=== PATIENT | male | born 1995 | race Caucasian/White ===

== ENCOUNTER 2019-02-04 05:33 | Inpatient (IN) | payer BC ==
[2019-02-04] MEDS ORDERED: Thrombin 5000 UNITS/5 ML VIAL ONE (06:18)
[2019-02-04] MEDS ORDERED: Lidocaine 0.5%/Epinephrine 1:200,000 50 ml Vial ONE (06:18)
[2019-02-04] MEDS ORDERED: Fentanyl 100 MCG/2 ML VIAL ONE ×3 (06:27→11:22)
[2019-02-04] MEDS ORDERED: Midazolam HCl 2 mg/2 ml Vial ONE (06:27)
[2019-02-04] MEDS ORDERED: Bacitracin Zinc Ointment 30 gm TUBE ONE (06:36)
[2019-02-04] MEDS ORDERED: Clindamycin/D5W 900 mg/50 ml Premix Bag ONE (06:40)
[2019-02-04] MEDS ORDERED: Levofloxacin 500 mg/D5W 100 ml Premix Bag ONE (06:40)
[2019-02-04] MEDS ORDERED: Docusate 100 MG CAP PO PRN (10:29)
[2019-02-04] MEDS ORDERED: diphenhydrAMINE 50 MG/ML VIAL IVP PRN (10:29)
[2019-02-04] MEDS ORDERED: Morphine 2 MG/ML SYRINGE SLOW IVP PRN (10:29)
[2019-02-04] MEDS ORDERED: hydrALAZINE 20 MG/ML VIAL SLOW IVP PRN (10:29)
[2019-02-04] MEDS ORDERED: Labetalol HCl 100 MG/20 ML VIAL SLOW IVP PRN (10:29)
[2019-02-04] MEDS ORDERED: Ondansetron PF 4 MG/2 ML Vial IVP PRN (10:29)
[2019-02-04] MEDS ORDERED: HYDROmorphone 2 MG/ML VIAL SLOW IVP PRN (10:49)
[2019-02-04] MEDS ORDERED: Ondansetron HCl/PF 4 MG/2 ML Vial IVP PRN (10:49)
[2019-02-04] MEDS ORDERED: Promethazine HCl 25 MG/ML VIAL SLOW IVP PRN (10:49)
[2019-02-04] MEDS ORDERED: Promethazine HCl 25 MG/ML VIAL IM PRN (10:49)
[2019-02-04] MEDS ORDERED: ePHEDrine/0.9% NaCl/PF SYRINGE 50 mg/10 ml ONE (14:03)
[2019-02-04] MEDS ORDERED: Esmolol 100 MG/10 ML VIAL ONE (14:03)
[2019-02-04] MEDS ORDERED: Labetalol HCl 100 MG/20 ML VIAL ONE (14:03)
[2019-02-04] MEDS ORDERED: Dexamethasone 20 MG/5 ML VIAL ONE (14:03)
[2019-02-04] MEDS ORDERED: Vecuronium 10 MG VIAL ONE (14:03)
[2019-02-04] MEDS ORDERED: Glycopyrrolate 0.2 MG/ML 5 ML SYRINGE ONE (14:03)
[2019-02-04] MEDS ORDERED: Ondansetron PF 4 MG/2 ML Vial ONE (14:03)
[2019-02-04] MEDS ORDERED: PHENYLEPHRINE-NS 100 MCG/ML 10 ML SYRINGE ONE (14:03)
[2019-02-04] MEDS ORDERED: Rocuronium Bromide 10 MG/ML (10ML VIAL) ONE (14:03)
[2019-02-04] MEDS ORDERED: Lidocaine 1% PF 5 ML VIAL ONE (14:03)
[2019-02-04] MEDS ORDERED: PROPOFOL 200 MG/20 ML VIAL ONE (14:03)
[2019-02-04] MEDS ORDERED: Fosphenytoin Sodium 100 mg/2 ml Vial IVPB SCH (15:00)
[2019-02-04 15:18] VITALS: BMI 22.1
[2019-02-04] MEDS: Clindamycin/D5W 900 MG in Premix Bag 1 BAG IVPB SCH ×3 (16:32→23:03)
[2019-02-04] MEDS: Sodium Chloride 0.9% 1,000 ML IV SCH (16:33)
[2019-02-04] MEDS: Dexamethasone 4 mg/ml Vial SLOW IVP SCH ×3 (16:33→23:03)
--- NOTE | 2019-02-04 17:11 | OP ---
DATE OF PROCEDURE: 02/04/2019 CONTINUOUS IMPROVEMENT ANALYST: Ramsey Fregoso PA-C INDICATION: Obtain diagnosis and prevent neurologic decline. DIAGNOSIS: Left frontoparietal lesion consistent with tumor. PROCEDURE PERFORMED: Left frontoparietal craniotomy with resection of tumor. ANESTHESIA: General. DESCRIPTION OF PROCEDURE: The patient was brought into the operating room and placed under general anesthesia. He was placed on table in a supine position. A three-point Tian jaskaran was applied to his head and fixed to the table. The stereotactic guidance system was attached and was registered for the purposes of preoperative and intraoperative surgical planning. A reverse ? incision was planned over the left frontoparietal region with minimal head shave. After prepping and draping and after an appropriate operative pause, the incision was created. The galea and temporalis muscle were reflected anteriorly and slightly inferior to expose the underlying bone. A stereotactic imaging system was again used to find out location of the tumor as well as the craniotomy site. A total of 4 harsha holes were placed. Those harsha holes were connected with a router drill bit. The bone flap was removed and placed in a sterile fashion. A curvilinear incision was then created within the dura and the dura was reflected inferiorly. There was immediately apparent abnormal hue to the underlying brain in this region as well as a grossly visible tumor at the cortical margin. Prior to incision, the patient had been given fosphenytoin and mannitol. A corticotomy was performed, where there was immediate egress of subacute and chronic blood product consistent with lesional hemorrhage. The hemorrhagic components were completely removed. Stereotactic imaging system was then used to remove the intraparenchymal component of the tumor, which appeared grossly abnormal without a clear border. It appeared necrotic in nature. The imaging system was used throughout in an effort to remove abnormal tissue. Given the proximity of this tumor to the patient's motor strip, no additional margins were removed outside of what appeared normal with respect to the imaging system. The initial pathologic analysis from a frozen section intraoperatively revealed necrotic and atypical tissue concerning for higher grade primary neoplasm. After obtaining hemostasis, multiple tack-up sutures were placed along the perimeter of the bone flap and the dura was secured. The dura was then closed in primary fashion around the perimeter. The bone was carefully returned and affixed at three-point fixation. The galea was closed in anatomic layers. During skin closure, Anesthesiology made us aware of a drop in blood pressure and poor oxygenation. We augmented this with pressors, and within minutes, the oxygenation as well as blood pressure normalized. It was unclear whether this represented venous air embolism or some other anomaly, but it nonetheless normalized and I did make the family aware during my postoperative discussion. A head wrap was securely placed and the procedure came to an end without known complication. Job ID: [id number]
[2019-02-04] MEDS: Fosphenytoin Sodium 100 MG in Sodium Chloride 0.9% 50 ML IVPB SCH ×2 (17:18→20:28)
[2019-02-04] MEDS: Acetaminophen 325 MG TAB PO PRN (20:27)
[2019-02-04] MEDS: Famotidine/PF 20 mg/2ml Vial SLOW IVP SCH (20:28)
[2019-02-05] MEDS: Sodium Chloride 0.9% 1,000 ML IV SCH ×2 (05:37→18:19)
[2019-02-05] MEDS: Acetaminophen 325 MG TAB PO PRN ×4 (05:48→19:59)
[2019-02-05] MEDS: Dexamethasone 4 mg/ml Vial SLOW IVP SCH ×3 (05:49→18:43)
[2019-02-05 05:57] LABS: Anion Gap 11 mmol/L (10-20); BUN (Urea Nitrogen) 16 mg/dL (8.9-20.6); Calc. Creatinine Clearance 127 mL/min (70-130); Calcium 8.6 mg/dL (7.8-10.44); Carbon Dioxide 31 mmol/L (22-29); Chloride 100 mmol/L (98-107); Estimated GFR-MDRD Greater than 90; Glucose 117 mg/dL (70-105); Potassium 4.7 mmol/L (3.5-5.1); Sodium 137 mmol/L (136-145)
[2019-02-05 06:09] LABS: Band 1 % (5-11); Hemoglobin 13.7 g/dL (14.0-18.0); Lymphocytes 2 % (21-51); MDiff Complete? YES; Mean Corpuscular HGB CONC 32.7 g/dL (32.0-36.0); Mean Corpuscular Hemoglobin 32.3 pg (27.0-31.0); Mean Corpuscular Volume 98.8 fL (78.0-98.0); Mean Platelet Volume 7.6 fL (7.4-10.4); Monocytes 7 % (0-10); Neutrophil 90 % (42-75); Platelet Count 199 thou/uL (130-400); Platelet Morphology Comment Appears Adequate; RBC Distribution Width 12.7 % (11.5-14.5); RBC Morphology Normal; Red Blood Cell (RBC) Count 4.25 mill/uL (4.70-6.10); White Blood Cell (WBC) Count 22.2 thou/uL (4.8-10.8)
[2019-02-05] MEDS: Fosphenytoin Sodium 100 MG in Sodium Chloride 0.9% 50 ML IVPB SCH (09:50)
[2019-02-05] MEDS: Famotidine/PF 20 mg/2ml Vial SLOW IVP SCH ×2 (09:51→20:00)
--- NOTE | 2019-02-05 10:47 | CON ---
DATE OF CONSULTATION: HISTORY OF PRESENT ILLNESS: Mike Ayon is a 23-year-old [place], who presented to the hospital for left frontoparietal craniotomy and resection of tumor. He apparently is pretty healthy, who did have some slurred speech and headache, and apparently, was seen by Neurosurgery where he was found to have a brain tumor. The patient is very healthy. PAST MEDICAL HISTORY: No history of diabetes or hypertension. PAST SURGICAL HISTORY: Previous surgeries; apparently intussusception. No chronic medication. ALLERGIES: APPARENTLY PENICILLIN. MEDICATIONS: He is presently on dexamethasone and Dilantin. Prior to admission, he was started on Protonix and Zyrtec. SOCIAL AND FAMILY HISTORY: Unremarkable. REVIEW OF SYSTEMS: Unremarkable. PHYSICAL EXAMINATION: GENERAL: He is awake, alert, and responsive. VITAL SIGNS: Temperature 98, saturations 98% on room air, blood pressure 106/79, pulse 88, and respirations 18. CHEST: No wheezing or crackles. CARDIAC: Normal S1, S2. No gallops. ABDOMEN: No masses. LABORATORY DATA: White count 20,000. Lytes are normal. Status post craniotomy. Stable. We will follow while in the ICU. Await path. Supportive care. Job ID: [id number]
[2019-02-05 13:39] VITALS: BP 107/67
--- NOTE | 2019-02-05 15:20 | PRG ---
DATE OF SERVICE: 02/05/2019 Mr. Ayon is postop day #1, following left frontal tumor resection and craniotomy. He is actually doing extraordinarily well today with only what he rates severe 3/10 pain over the incision. Neurologically, he is at his baseline, where he was preoperatively. If not, may be somewhat improved and is very optimistic. Pathology was discussed yesterday with his parents. I am uncertain if that was discussed with the patient today or not. The plan will be to move him out of the ICU. Discontinue his Giles and then move him to the surgical floor with potential discharge as early as today. We are still pending the final pathology results. Consultations have been ordered to Oncology. Job ID: [id number]
[2019-02-05] MEDS ORDERED: Prevnar 13-Val Conj/PF 0.5 ML SYRINGE IM ONE (15:30)
[2019-02-05] MEDS ORDERED: FLU VACC QS2019-20(6MOS UP)/PF 60 MCG/0.5 ML SYRINGE IM ONE (15:45)
--- NOTE | 2019-02-05 17:41 | PRG ---
DATE OF SERVICE: 02/05/2019 When I saw Mr. Ayon earlier today, his pathology report was not available. It has now become available. 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 Molecular analysis on the tumor is still pending. I went and talked to the patient and his parents, who are at his bedside regarding his diagnosis. We discussed the pathology, the prognosis, and the implications for treatment. He will need postoperative chemotherapy and radiation and most likely will need maintenance chemotherapy after that. The logistics of radiation as well as the benefits and risk of treatment were discussed with them. The simulation and daily treatment procedure were discussed. Side effects would include, but not be limited to skin reaction, fatigue, lower blood counts, hair loss which may be permanent, headache, nausea, vomiting, and small risk of damage to his normal brain. Time was taken to all of their questions regarding his diagnosis and possible treatment options and prognosis. We did discuss that the only other option that he could consider for treatment would be to go to an academic center such as [facility] or [facility] and to see if there is a clinical trial that is available given the fact that these tumors are likely to recur despite best standard treatment. They are going to consider all other options. They still are desirous of proceeding with treatment here. I am going to make arrangements to see them again in 2 weeks and will make arrangements for them also to be seen by Medical Oncology if they have not already done so. An additional 30 minutes were spent at the bedside discussing all of this. Job ID: [id number]
--- NOTE | 2019-02-05 18:18 | CON ---
DATE OF CONSULTATION: 02/05/2019 REASON FOR CONSULTATION: Mr. Ayon is a 23-year-old gentleman, who has likely been diagnosed with a brain tumor. I was asked to see him to make treatment recommendations. HISTORY OF PRESENT ILLNESS: Mr. Ayon states that about 4 weeks ago, he first noted some slurred speech. This gradually progressed. About 2 weeks ago, he saw some right-sided facial weakness and drooping and he subsequently went to Urgent Care for this. He was then sent to the emergency room and ultimately was admitted to [facility], where he had an MRI of the brain, which apparently showed a mass in the left frontal parietal region of the brain. Apparently, there was a little enhancement, but there was a cystic portion to the mass. Subsequently on 02/04/2019, he underwent a left frontoparietal craniotomy with resection of the tumor by Dr. Quezada. The cystic portion of the tumor was completely removed and a large portion of the tumor was removed, although the borders were difficult and it was felt that a gross total resection was not able to be accomplished. Care was taken to avoid injury to the motor strip. Frozen section was consistent with a high-grade tumor, although path is still currently pending. I was asked to see the patient to discuss possible treatment options. He does feel that his speech and facial droop have improved since surgery. He denies any headaches at this time or focal weakness or numbness. He voices no other complaints. PAST MEDICAL HISTORY: 1. Intussusception at age 4, status post surgical repair. 2. He denies other medical or surgical problems. MEDICATIONS: 1. Dexamethasone. 2. Pepcid. ALLERGIES: PENICILLIN, WHICH CAUSES A RASH AND VOMITING. SOCIAL HISTORY: He lives here in [facility]. He is a student at [employer], and he is in his jack year. 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 He has no cigarette or alcohol use at the present. His mother and father are at his bedside. FAMILY HISTORY: His mother and father still living and doing well. There is no family history of malignancy. REVIEW OF SYSTEMS: Twelve-system review of systems is otherwise negative. PHYSICAL EXAMINATION: VITAL SIGNS: Height 5 feet and 10 inches. Weight 154 pounds. Blood pressure is 120/76, pulse is 74, respirations are 15, temperature 98.6, O2 saturations 99%. CONSTITUTIONAL: He is alert and oriented and in no apparent distress. He is well developed and well nourished. Karnofsky performance status is an 80%, but expected to improve. EYES: Pupils equal, round, and reactive to light. Extraocular movements are intact. ENT: Oral cavity and oropharynx normal without lesion or erythema. Palate elevates symmetrically. Gingiva is intact. NECK: Supple without preauricular, submandibular, cervical, supraclavicular adenopathy. No thyromegaly. Larynx is midline. LUNGS: Breathing nonlabored. Clear to auscultation and percussion. CARDIOVASCULAR/HEART: Regular rate and rhythm without murmur. No lower extremity edema. BACK: No tenderness on fist percussion of the spine. LYMPHATIC: No axillary or inguinal adenopathy. ABDOMEN: Bowel sounds are present. Soft, nontender, nondistended without mass or hepatosplenomegaly. Liver percusses to normal size. SKIN: Without rash or purpura. NEUROLOGIC: Cranial nerves 2 through 12 grossly intact. Motor strength is 5/5 in both upper and lower extremities in all muscle groups tested. Reflexes are normal and symmetrical. Gait was not tested. LABORATORY DATA: CBC revealed a white blood cell count of 22,000 with a hemoglobin of 13.7, hematocrit of 42.0, and platelet count 199,000. Chemistry group showed normal electrolytes. Pathology from the surgery is currently pending. RADIOLOGIC DATA: MRI was performed at [facility], and is currently not available for review. ASSESSMENT: Mr. Ayon is a 23-year-old gentleman, who is status post craniotomy for a left frontoparietal brain tumor. Pathology from this is currently pending. PLAN: I had a long discussion today with Mr. Ayon as well as his mother and father regarding his situation and possible diagnosis. At this time, his pathology is not available for review. I told them that it may take 1 to 2 weeks to get his final pathology back as I anticipate that they will likely send this for expert Neuropathological consultation as well as perform immunostains in mutational analysis to exactly classify this brain tumor. I explained the spectrum of brain tumors that exist to Nany and also explained that treatment depends on what type of brain tumor this could be. Tumor treatment may consist of radiation therapy followed by chemotherapy, chemotherapy followed by radiation, or concurrent chemotherapy and radiation depending on the exact brain tumor and the exact grade of the brain tumor. The logistics of radiation as well as the benefits and risk of treatment were briefly discussed with them. The simulation and daily treatment procedure were briefly discussed. Again, not many details can be given of this because we do not have pathological diagnosis at the present time. I recommended that we see him again as an outpatient in about 2 weeks. I explained that typically radiation begins anywhere from 4 to 6 weeks after surgery depending on healing. They are agreeable with that and we will make arrangements for him to be seen in about 2 weeks for evaluation and final treatment recommendations. He does indicate his desire to proceed with treatment here in town if possible. His family is from just outside of [place]. Nevertheless, he hopes to proceed with treatment here. Thank you for this interesting consultation. Job ID: [id number]
[2019-02-06 00:43] VITALS: TEMP 98.7
[2019-02-06] MEDS: Dexamethasone 4 mg/ml Vial SLOW IVP SCH (01:03)
[2019-02-06] MEDS ORDERED: Dexamethasone 4 mg/ml Vial ONE (05:43)
--- NOTE | 2019-02-06 19:16 | PRG ---
DATE OF SERVICE: 02/06/2019 Mr. Ayon is a 23-year-old gentleman, now 2 days status post a left frontal parietal resection of a glioblastoma multiform. The intraoperative and postoperative course have been uneventful. He is in the ICU today only because a floor bed was not available. He is back to neurologic baseline, which is normal with the exception of mild facial droop and mild degree of dysarthria, which he had preoperatively. I inspected his incision which is well healed. He has been mobilizing independently and tolerating an oral diet and reports minimal pain. The plan is to discharge him home today on Dilantin and a Decadron taper. We have made plans to follow up with him in the clinic in 2 weeks for staple removal. We have also made plans for him to follow up with Oncology in 2 weeks to further explore his options with respect to adjuvant treatment. I had a lengthy discussion with the patient's parents today in his room. Discussed all the above issues as well as perioperative care of his incision and the options for adjuvant treatment moving forward and our willingness to talk to him at any time should they have any concerns which developed between now and his 2 week appointment. Job ID: [id number] [email or web address]
== END 2019-02-06 11:50 | disposition home or self-care (01) | DRG 25 ==
LOC: SURG A 05:33 → CCU 15:00
PROVIDERS: ADMIT Neurological Surgery; ATTEND Neurological Surgery
PROC: 00B00ZZ Excision of Brain, Open Approach (ICD-10-PCS; principal; 2019-02-04)
PROC: 00C00ZZ Extirpation of Matter from Brain, Open Approach (ICD-10-PCS; 2019-02-04)
DX: C71.1 Malignant neoplasm of frontal lobe (principal); I61.8 Other nontraumatic intracerebral hemorrhage; I96 Gangrene, not elsewhere classified; Z88.8 Allergy status to other drugs, medicaments and biological substances; Z88.0 Allergy status to penicillin; Z79.899 Other long term (current) drug therapy; Z98.890 Other specified postprocedural states; R29.810 Facial weakness
CPT/HCPCS: 36415; 80048; 85025; 88307; 88331; 88334; 88342; 88360; 90471; 90686; C1713; C1769; G0008; J1100; J1165; J1956; J2001; J2250; J2270; J2405; J2704; J3010; J3490; Q2009; S0028

== ENCOUNTER 2019-02-25 15:48 | Outpatient (CLI) | payer BC ==
--- NOTE | 2019-02-26 09:20 | MRI ---
Exam: Brain MRI with and without contrast HISTORY: Glioblastoma of the left frontal lobe. Status post resection. COMPARISON: None FINDINGS: Gradient echo sequence: Hemosiderin deposition at the surgical cavity. Additionally there is hemoside rin deposition in the overlying extra-axial space. Calvarium: Appropriate T1 marrow signal intensity. Post surgical changes in the left temporal calvari um is noted. Midline brain parenchyma: Unremarkable Cerebrum:There is a large resection cavity with heterogeneous T1 hyperintense foci that have a somewh at linear appearance. There are extensive T2 hyperintense and FLAIR hyperintense foci suggesting cystic changes involving the resection cavity. There does appear to be a peripherally enhancing compo nent throughout the entire surgical cavity with multiple areas of lobulation. There is a more solid component along the inferior anterior and inferior lateral aspect of the surgical cavity. Residual tu mor in this region is suspected. Additional areas of residual tumor cannot be excluded. Overall, the mass measures 4.1 cm mediolateral by 4.0 cm anterior-posterior by 4.1 cm craniocaudal. On the axi al FLAIR sequence there is evidence of vasogenic edema involving the left temporal lobe with associated sulcal effacement. There is mass effect upon the occipital horn of the left lateral ventri augustine. There is 5 mm of [id number] subfalcine herniation. Ventricles: No evidence of hydrocephalus. Sinuses and mastoid air cells: Small mucous retention cyst in the right maxillary sinus. Diffusion: Central arterial flow is maintained. Restricted diffusion at the operative site is noted. No evidence of restricted diffusion to suggest an acute infarct.. Postcontrast images:Enhancement at the operative site as described above. IMPRESSION: Operative site involving the left temporal lobe. There is evidence of heterogeneous enhancement at th e operative site which may in part represent scar tissue. However, the anterior inferior and inferior lateral aspect have a somewhat more solid appearance on the T2-weighted and FLAIR images. Th ere is also heterogeneous enhancement suggesting residual tumor. Transcribed Date/Time: 02/26/2019 9:55 AM
== END 2019-02-25 15:49 | disposition home or self-care (01) ==
LOC: SCSMRI 15:48
PROVIDERS: ATTEND Radiology Radiation Oncology
DX: C71.1 Malignant neoplasm of frontal lobe (principal)
CPT/HCPCS: 70553

== ENCOUNTER 2019-04-19 13:31 | Emergency (ER) | payer BC ==
--- NOTE | 2019-04-19 13:48 | CT ---
Head CT without contrast 04/19/2019: COMPARISON: [facility]B 02/25/2019 HISTORY: Right arm and leg weakness, right-sided facial droop TECHNIQUE: Axial CT imaging at 5 mm intervals from vertex through skull base without contrast FINDINGS: Imaged paranasal sinuses and mastoid air cells are well-aerated. There is evidence of left craniotomy. There is a complex solid and cystic intra-axial mass lesion deep to the left craniotomy site which measures at least 4.3 x 5.3 x 4.0 cm. Mild adjacent vasogenic edema along the posterior ma rgin. When compared to prior brain MRI the size of the intra-axial mass does not appear significantly changed. The degree of vasogenic edema along its posterior margin is stable to slightly improved. No intracranial hemorrhage is seen. The degree of associated mass effect present on the 02/25/2019 examination has slightly improved. No significant midline shift at this point. IMPRESSION: Intra-axial mass in the left frontal region, consistent with the provided history of part ially resected glioblastoma. No associated hemorrhage. Dr. Velasquez made aware at 1:45 PM 04/19/2019.
[2019-04-19 14:05] LABS: #Eosinphils 0.1 thou/uL (0.0-0.7); #Lymphocytes 0.5 thou/uL (1.20-3.40); #Monocytes 0.6 thou/uL (0.11-0.59); #Neutrophils 7.7 thou/uL (1.40-6.50); %Basophils 0.2 % (0.0-1.0); %Eosinophils 1.6 % (0.0-10.0); %Monocytes 6.4 % (0.0-10.0); %Neutrophils 85.9 % (42.0-75.0); Hemoglobin 16.5 g/dL (14.0-18.0); Mean Corpuscular HGB CONC 34.6 g/dL (32.0-36.0); Mean Corpuscular Hemoglobin 33.9 pg (27.0-31.0); Mean Corpuscular Volume 97.9 fL (78.0-98.0); Mean Platelet Volume 7.1 fL (7.4-10.4); Platelet Count 214 thou/uL (130-400); RBC Distribution Width 13.4 % (11.5-14.5); Red Blood Cell (RBC) Count 4.87 mill/uL (4.70-6.10)
[2019-04-19 14:30] LABS: ALT (SGPT) 44 U/L (8-55); AST (SGOT) 16 U/L (5-34); Albumin 4.3 g/dL (3.5-5.0); Alkaline Phosphatase 54 U/L (40-110); Anion Gap 12 mmol/L (10-20); BUN (Urea Nitrogen) 13 mg/dL (8.9-20.6); Bilirubin, Total 0.4 mg/dL (0.2-1.2); Calc. Creatinine Clearance 0 mL/min (70-130); Carbon Dioxide 30 mmol/L (22-29); Chloride 104 mmol/L (98-107); Estimated GFR-MDRD 90; Globulin 2.3 g/dL (2.4-3.5); Glucose 90 mg/dL (70-105); Potassium 4.2 mmol/L (3.5-5.1); Protein, Total 6.6 g/dL (6.0-8.3); Sodium 142 mmol/L (136-145)
[2019-04-19 14:52] LABS: Bilirubin Negative (Negative); Blood, Urine Negative (Negative); Clarity Clear (Clear); Glucose, Urine (Dipstick) Normal (Negative); Leukocyte Negative Leu/uL (Negative); Nitrite Negative (Negative); Protein, Urine (Dipstick) Negative (Neg-Trace); Urobilinogen Normal mg/dL (Less than 2)
[2019-04-19] MEDS ORDERED: Dexamethasone 4 mg/ml Vial ONE (18:04)
--- NOTE | 2019-04-19 23:04 | CON ---
DATE OF CONSULTATION: 04/19/2019 CHIEF COMPLAINT: Facial spasm, numbness and tingling in the fingers of right hand. HISTORY OF PRESENT ILLNESS: Mr. Ayon is a pleasant 23-year-old gentleman who presents to the emergency department today for evaluation of right-sided facial spasms and numbness/tingling in the fingers of his right hand. He states that he was sitting in class today around 12:30 pm and he began to have right-sided facial spasms as well as numbness and tingling in the fingers of his right hand. He denies any left-sided symptoms. He denies any altered mental status. He reports that he had a similar episode shortly after his left frontal craniotomy and tumor resection on 02/04/[address] Quezada. Tumor pathology returned grade 4 glioblastoma. He subsequently has been undergoing radiation and chemotherapy. He states that his final radiation treatment was yesterday. He is still undergoing chemotherapy. He was previously on phenytoin, but this medication was discontinued approximately 2 weeks ago. He was on a maintenance dose of 300 mg once daily; however, this was decreased to 100 mg daily prior to the medication being discontinued. He remains on Decadron 4 mg once daily, which was recently decreased from 4 mg b.i.d. Overall, he states that he has been doing well recently. He states that his paresthesias in his right hand have resolved since being admitted to the emergency department. He is no longer having the spasms in the right side of his face either. He denies any complaints of pain or headaches. No associated weakness in extremities. No problems with ambulation. PHYSICAL EXAMINATION: The patient is awake, alert, and appropriate. Pupils are equal, round, reactive to light. Extraocular movements are intact. Cranial nerves 2-12 are grossly intact. No tongue fasciculations. 5/5 strength throughout his upper and lower extremities bilaterally. He has a good range of motion and movement in all extremities. IMPRESSION AND DIAGNOSES: 1. Suspected partial seizure 2. Status post left frontal craniotomy and tumor resection on 02/04/2019 with pathology findings of grade 4 glioblastoma PLAN: At this time, I have reviewed imaging and discussed case with Dr. Dominique. The patient's CT of the brain completed in the emergency department today revealed tumor resection changes in the left frontal lobe with surrounding vasogenic edema that appears improved compared to prior MRI of the brain completed in mid February 2019. The patient's episode of right-sided symptoms are clinically consistent with a partial seizure originating from the left hemisphere. Patient was recently taken off phenytoin, and this will be re-started. In the emergency department he received 500 mg loading dose of IV phenytoin, then a phenytoin level was checked to ensure he was therapeutic. His phenytoin level returned 10.2, which is in therapeutic range. He was sent home on a maintenance dose of 300 mg p.o. once daily at nighttime. He was also given IV Decadron in the emergency department. He will be discharged on Decadron 4 mg p.o. q.6 hours over the weekend, then he will call his Oncologist or Dr. Quezada to discuss steroid taper beginning next week. The patient is stable for discharge home. Discussed that he should follow up with Oncology and Dr. Quezada on an outpatient basis. He will return to the emergency department for any similar seizure-like activity or any other concerns. The patient and his parents state understanding of all information discussed. They will call the office with any questions or concerns. This was a 50 minute initial visit in which greater than 50% of the time was spent in review of records, imaging, evaluation, examination of the patient, and formulation of plan. The remaining time was spent in counseling and coordination of care. Job ID: [id number] [facility]
== END 2019-04-19 21:34 | disposition home or self-care (01) ==
LOC: ERS 13:31
DX: C71.9 Malignant neoplasm of brain, unspecified (principal); K21.9 Gastro-esophageal reflux disease without esophagitis; R56.9 Unspecified convulsions; R20.2 Paresthesia of skin; Z79.899 Other long term (current) drug therapy
CPT/HCPCS: 36415; 36416; 70450; 80053; 80185; 81003; 85025; 93005; 96365; J1100; Q2009

== ENCOUNTER 2019-05-10 10:13 | Inpatient (IN) | payer BC ==
[2019-05-10] MEDS ORDERED: Ondansetron PF 4 MG/2 ML Vial ONE (10:49)
[2019-05-10 10:50] LABS: #Eosinphils 0.2 thou/uL (0.0-0.7); #Lymphocytes 0.4 thou/uL (1.20-3.40); #Monocytes 0.8 thou/uL (0.11-0.59); #Neutrophils 6.9 thou/uL (1.40-6.50); %Basophils 0.1 % (0.0-1.0); %Eosinophils 2.7 % (0.0-10.0); %Monocytes 9.9 % (0.0-10.0); %Neutrophils 82.4 % (42.0-75.0); Hemoglobin 16.7 g/dL (14.0-18.0); Mean Corpuscular HGB CONC 35.2 g/dL (32.0-36.0); Mean Corpuscular Hemoglobin 33.8 pg (27.0-31.0); Mean Corpuscular Volume 96.2 fL (78.0-98.0); Mean Platelet Volume 7.1 fL (7.4-10.4); Platelet Count 208 thou/uL (130-400); RBC Distribution Width 13.3 % (11.5-14.5); Red Blood Cell (RBC) Count 4.94 mill/uL (4.70-6.10); White Blood Cell (WBC) Count 8.4 thou/uL (4.8-10.8)
[2019-05-10 11:15] LABS: ALT (SGPT) 37 U/L (8-55); AST (SGOT) 13 U/L (5-34); Albumin 4.5 g/dL (3.5-5.0); Alkaline Phosphatase 63 U/L (40-110); Anion Gap 12 mmol/L (10-20); BUN (Urea Nitrogen) 10 mg/dL (8.9-20.6); Bilirubin, Total 0.9 mg/dL (0.2-1.2); Calc. Creatinine Clearance 0 mL/min (70-130); Calcium 9.7 mg/dL (7.8-10.44); Carbon Dioxide 27 mmol/L (22-29); Chloride 97 mmol/L (98-107); Estimated GFR-MDRD Greater than 90; Globulin 2.9 g/dL (2.4-3.5); Glucose 100 mg/dL (70-105); Potassium 4.1 mmol/L (3.5-5.1); Protein, Total 7.4 g/dL (6.0-8.3); Sodium 132 mmol/L (136-145)
--- NOTE | 2019-05-10 11:29 | RAD ---
PORTABLE CHEST 1 VIEW: DATE: 05/10/2019. TIME: 10:18 AM. HISTORY: Vomiting, headache, glioblastoma. FINDINGS: The heart size is normal. The lungs are expanded without focal areas of consolidation, pneumothorace s, or pleural effusions. IMPRESSION: No acute process. POS: [facility]
[2019-05-10] MEDS ORDERED: Dexamethasone 4 mg/ml Vial ONE (11:49)
[2019-05-10] MEDS ORDERED: Lorazepam 2 MG/ML VIAL ONE (12:09)
--- NOTE | 2019-05-10 12:25 | CT ---
CT BRAIN NONCONTRAST: DATE: 05/10/2019 HISTORY: 23-year-old male with altered mental status. Dr. Ellington is attending to another patient at this time, and is unable to answer the phone. Dr. Suresh notified ER receptionist secretary Aggie Reinoso of the ER, and instructed her to notify Dr. Ellington as so on as possible of the severe intracranial mass effect with herniation, by telephone at 12:21 PM on 05/10/2019. COMPARISON: 04/19/2019 FINDINGS: Again noted are the left temporoparietal craniotomy changes. Deep to that, the previously demonstrate d postsurgical edema and residual primary neoplastic tumor complex, has become significantly larger, with new large region of surrounding vasogenic edema, effacing sulci throughout the left cere bral hemisphere, extrinsically compressing and narrowing the lateral ventricles and third ventricle, and causing left to right midline shift of the septum pellucidum a distance of 9 mm. The a mbient cistern is effaced. There is minimal dilation of the right temporal horn. No signs of vertical downward transtentorial herniation No new extra-axial fluid collection. IMPRESSION: Significant interval worsening of edema at the left upper lateral frontal and parietal tumor surgical bed, causing high-grade mass effect, subfalcine herniation, and early left uncal herniation.
[2019-05-10] MEDS ORDERED: levETIRAcetam In NaCl (Iso-Os) 1,500 MG in Premix Bag 1 BAG IVPB SCH (13:00)
[2019-05-10] MEDS ORDERED: Magnevist 469MG/ML 20 ML VIAL ONE (14:13)
[2019-05-10 14:44] VITALS: BMI 25.8
[2019-05-10] MEDS: Sodium Chloride 0.9% 1,000 ML IV SCH (15:15)
[2019-05-10] MEDS ORDERED: Acetaminophen 325 MG TAB PO PRN (15:19)
[2019-05-10] MEDS ORDERED: Lorazepam 2 MG/ML VIAL SLOW IVP PRN (15:23)
--- NOTE | 2019-05-10 17:17 | MRI ---
MRI BRAIN WITH AND WITHOUT CONTRAST: 05/10/19 INDICATIONS: Evaluate brain mass. Seizure. Comparison made to MRI of 02/25/19. Correlation made to today's CT scan. FINDINGS: When compared to the prior MRI there has been significant increase in the surrounding vasogenic edema . Operative changes in the left frontal lobe again noted. There is increased midline shift. Midline shift at the septum pellucidum today measured at 1 cm. There are numerous areas of enhancement within the operative bed today which have increased since the prior exam. Overall measurement of this area of abnormal enhancement has increased measuring up to 6 cm AP dimension today. There are numerous nodularities and enhancement which are new from prior exam indicating new satellite lesions. Intense enhancement seen along the medial aspect of this mass toda y. IMPRESSION: Evidence of significant progression of neoplasm in the left frontal lobe at the operative site. There are now new areas of nodular enhancement with increasing enhancement at the operative site when comp ared to prior exam. There is increasing vasogenic edema and mass effect. POS: [facility]
[2019-05-10] MEDS: Dexamethasone 4 mg/ml Vial SLOW IVP SCH (18:04)
--- NOTE | 2019-05-10 21:58 | HP ---
CHIEF COMPLAINT: Seizures which presented as twitching of the right side of the face and right upper extremity. Apparently, this young man has diagnosis of glioblastoma and it had operation done in the beginning of this year. He was doing quite well until yesterday when he started having nausea and vomiting. He was not able to keep anything down and also he had some twitching of the right side of the face and right upper extremity along with some headache. He presented to the emergency room and apparently he had seizures. He was a loaded with Keppra, although he was taking Keppra prior to this hospitalization, also with dexamethasone and benzodiazepines and he is getting admitted to the hospital for further evaluation of his condition. PAST SURGICAL HISTORY: Brain tumor removal. SOCIAL HISTORY: He drinks socially. He does not use any illicit drugs. He does not smoke. MEDICATIONS: At home, dexamethasone 4 mg once a day, Zofran ODT one tablet 8 mg 3 times a day p.r.n. as needed, tramadol 50 mg every 12 hours, temozolomide 140 mg once a day, Keppra 1000 mg once a day, and pantoprazole 40 mg once a day. FAMILY HISTORY: Both parents are alive and healthy. ALLERGIES: AUGMENTIN AND PENICILLINS. REVIEW OF SYSTEMS: All other symptoms were reviewed and they were negative except for those which are mentioned in HPI. PHYSICAL EXAMINATION: VITAL SIGNS: Patient's blood pressure is 120/75, pulse is 73, temperature 98.6. Pain is 0. O2 saturation is 97% on room air. GENERAL: He has a healed incision on the left side of his skull. He is very drowsy during my visits, so physical examination is very limited. He tries to follow, but he falls short quickly since he received multiple medications with sedative effect in the emergency room. HEENT: His pupils are in midline with some response to the light. Sclerae are nonicteric. Conjunctivae reddish. LUNGS: Clear. HEART: S1, S2 normal. No S3. No S4. ABDOMEN: Soft, nontender, nondistended. EXTREMITIES: No clubbing, cyanosis, or edema. NEUROLOGICAL EXAMINATION: As I mentioned above, he is drowsy from all his medications he received in the emergency room, but he is arousable. He tries to follow, but falls short quickly and he goes back to sleep. He is able to move his all 4 extremities. There is some weakness in the right upper and right lower extremity. Babinski sign is positive bilaterally. LABORATORY DATA: White count of 8.4, hemoglobin 16.7, hematocrit 47.6, platelet count is 208,000. Sodium of 132, potassium 4.1, chloride 97, CO2 of 27, BUN 10, creatinine 0.97. The rest of chemistry is within normal limits. Lactic acid 1.6. Microbiology, influenza type A and B direct EIA negative. IMAGING STUDIES: Chest x-ray personally reviewed by me showed no acute process. CT of the brain personally reviewed by me showed significant interval worsening of edema at the left upper lateral frontal and parietal tumor surgical bed causing high-grade mass effect. Also read at subfalcine herniation and early left uncal herniation. IMPRESSION: Brain tumor, status post resection. This was diagnosed as grade 4 glioblastoma, presenting with seizures, nausea, vomiting since yesterday. PLAN: Admission to ICU. Condition is guarded. Regular diet. Normal saline at 75 mL/h. Neurosurgery saw the patient in the emergency room. He is started on Decadron and he received Keppra on the top of benzodiazepines for seizures. MRI is to be done in the next few minutes. He will be on PPI. He will have SCDs for DVT prophylaxis. Neurology is consulted. We will continue Decadron 4 mg q.6 hours IV push and we will continue Keppra 1000 mg twice a day and Dr. Schroeder' Oncology consultation was done by ER and he will remain in the intensive care unit until he is more stable. Job ID: [id number]
--- NOTE | 2019-05-10 23:09 | CON ---
DATE OF CONSULTATION: REASON FOR CONSULTATION: Mr. Ayon is a 23-year-old gentleman known to me for his diagnosis of glioblastoma. He was admitted to the hospital after a seizure and I was asked to see him to discuss recommendations. HISTORY OF PRESENT ILLNESS: Mr. Ayon is known to me. He was diagnosed in late January/early February with a glioblastoma of the left parietal lobe of the brain. He had trouble with his speech and some motor weakness. He underwent a subtotal resection by Dr. Quezada with pathology showing a glioblastoma. 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 He recently completed concurrent chemotherapy and radiation on 04/18/2019, which was given postoperatively. After completing his therapy, we did slowly taper him off the steroids. He did experience some seizures and he was on Keppra for this. He was doing well until yesterday when he began experiencing nausea, not being able to keep things down. His mother noticed the change. He had a few more seizures. This morning, he was brought to the emergency room and while having a CT scan of the head, he experienced a seizure. The CT showed edema and he was subsequently admitted for evaluation and treatment. Dr. Quezada did see him and I have been asked by Dr. Quezada also to see him to discuss treatment options. He has not been having headaches. He has not been having focal weakness up until the seizure. Since the seizure, he is having more right-sided weakness and difficulty with speech. He did have an MRI of the brain, which does show the contrast-enhancing tumor. PAST MEDICAL HISTORY: 1. Intussusception at age 4. 2. Glioblastoma as mentioned above. 3. He denies other medical or surgical problems. MEDICATIONS: 1. Decadron. 2. Keppra. 3. Ativan p.r.n. 4. Protonix. ALLERGIES: PENICILLIN, WHICH CAUSED A RASH AND VOMITING. SOCIAL HISTORY: He lives here in town as he was a student at [employer]. He is a jack in electrical engineering. He has no cigarette or alcohol use. His mother and father have been staying with him here in town as they own property here in town also. They do live in a [place] town. FAMILY HISTORY: Mother and father are living and doing well. There is no family history of glioblastoma. REVIEW OF SYSTEMS: Twelve-system review of systems is otherwise negative. PHYSICAL EXAMINATION: VITAL SIGNS: Height 5 feet 9 inches, weight 174 pounds. Blood pressure is 121/73, pulse is 80, respirations are 18, temperature 98.9, and O2 saturation 98%. GENERAL: He is alert and oriented, although is still having difficulty with his speech. Physical exam was limited. He does have some right-sided weakness. RADIOLOGIC DATA: CT scan of the head and MRI of the brain were all personally reviewed. The CT showed vasogenic edema and midline shift. I reviewed his MRI of the brain and the contrast-enhancing area does appear bigger than it did prior to his treatment. There is surrounding vasogenic edema and midline shift. There is question as to whether this represents progression or pseudoprogression since he recently completed his treatment. LABORATORY DATA: CBC revealed a white blood cell count of 8400 with a hemoglobin of 16.7, hematocrit of 47.6, platelet count of 208,000. Chemistry group showed fairly normal electrolytes. ASSESSMENT: Mr. Ayon is a 23-year-old gentleman with a methylated glioblastoma, who recently completed chemotherapy and radiation. He was actually beginning his maintenance Temodar this week and only had 1 or 2 days of this prior to being admitted for seizures. PLAN: I did have a discussion with Mr. Ayon and with his mother and father. The results of the MRI could be consistent with progressive tumor or with pseudoprogression. Pseudoprogression is a phenomenon that we see after concurrent chemotherapy and radiation with the use of Temodar. Basically, pseudoprogression is felt to occur from a leaky blood-brain barrier after concurrent chemotherapy and radiation, which allowed contrast to leak and makes the appearance of progressive tumor. Dr. Quezada is seeing the patient. I am not sure that there is anything surgically that he would offer. I think our best management at this point is probably medical management. I agree with placing him back on dexamethasone. He will likely have to be on dexamethasone, mcfp. I think that we place him on steroids and hopefully get his seizures under control with medication. Hopefully, some of the right-sided weakness is from the edema and also pseudoprogression. It is hopeful that this will improve over the next several days while on this therapy. If he does improve, then we can resume the medical management of his tumor with Temodar and can follow up with MRIs as an outpatient. At this point, there is no role for any additional radiation therapy. Thank you for this interesting consultation. Job ID: [id number]
[2019-05-11] MEDS: Dexamethasone 4 mg/ml Vial SLOW IVP SCH ×4 (00:05→19:37)
[2019-05-11] MEDS: Sodium Chloride 0.9% 1,000 ML IV SCH (03:04)
[2019-05-11 03:56] LABS: #Lymphocytes 0.4 thou/uL (1.20-3.40); #Monocytes 0.6 thou/uL (0.11-0.59); #Neutrophils 12.2 thou/uL (1.40-6.50); %Eosinophils 0.3 % (0.0-10.0); %Lymphocytes 2.6 % (21.0-51.0); %Monocytes 4.3 % (0.0-10.0); %Neutrophils 92.8 % (42.0-75.0); Mean Corpuscular HGB CONC 35.1 g/dL (32.0-36.0); Mean Corpuscular Hemoglobin 33.4 pg (27.0-31.0); Mean Corpuscular Volume 95.2 fL (78.0-98.0); Mean Platelet Volume 7.7 fL (7.4-10.4); Platelet Count 207 thou/uL (130-400); RBC Distribution Width 13.2 % (11.5-14.5); White Blood Cell (WBC) Count 13.2 thou/uL (4.8-10.8)
[2019-05-11 04:13] LABS: Anion Gap 14 mmol/L (10-20); BUN (Urea Nitrogen) 11 mg/dL (8.9-20.6); Calc. Creatinine Clearance 175 mL/min (70-130); Calcium 9.2 mg/dL (7.8-10.44); Carbon Dioxide 20 mmol/L (22-29); Chloride 99 mmol/L (98-107); Estimated GFR-MDRD Greater than 90; Glucose 119 mg/dL (70-105); Potassium 4.3 mmol/L (3.5-5.1); Sodium 129 mmol/L (136-145)
--- NOTE | 2019-05-11 08:41 | CON ---
DATE OF CONSULTATION: HISTORY OF PRESENT ILLNESS: A 23-year-old gentleman, who is now in the ICU. He presented to the ER with nausea and vomiting, apparently seizure activity right-sided. He was having headaches this morning. He denies any headache. He has known history of glioblastoma diagnosed in February. He has been followed by Oncology. Pulmonary Critical Care has been consulted because he is in the ICU. PAST MEDICAL HISTORY: Otherwise extensively outlined, pertinent for his previous glioblastoma diagnosed, history of previous intussusception at age 4. SOCIAL HISTORY: No alcohol or tobacco abuse. CURRENT MEDICATIONS: 1. Tramadol. 2. Keppra. 3. Temozolomide. 4. Protonix. 5. Zofran. 6. Dexamethasone. 7. Cetirizine. ALLERGIES: PENICILLIN. REVIEW OF SYSTEMS: Unremarkable. PHYSICAL EXAMINATION: GENERAL: He is awake, alert, responsive. VITAL SIGNS: Temperature 98, pulse 65, blood pressure respiratory rate 18. CHEST: No wheezing or crackles. CARDIAC: Normal S1 and S2. No gallops. ABDOMEN: Soft. LABORATORY STUDIES: Sodium is 129, low. White count 13,000. He had a chest x-ray, which is normal. His MRI showed worsening right frontal lesion progression as outlined. ASSESSMENT: 1. Glioblastoma on treatment by Oncology and Radiation Oncology. 2. . PLAN: 1. Continue recommendation as per Oncology as well as neurosurgery. Pulmonary will monitor and follow while in the ICU. 2. Continue antiseizure medications, supportive care. IV fluids, normal saline. 3. Decadron on board. Keppra on board. 4. We will follow. Consultation note, 70 minutes, 50% direct patient care. Job ID: [id number]
--- NOTE | 2019-05-11 08:50 | PRG ---
DATE OF SERVICE: 05/11/2019 Mr. Ayon 23-year-old gentleman, known to me for subtotal resection of a GBM several months ago. He presented yesterday to the ER with intractable nausea and vomiting. He had a CT scan performed, during which time he had a generalized seizure. CT scan showed no evidence for hemorrhage, but did show significant increase in the peritumoral edema with some midline shift. Subsequent to that, he had an MRI scan, which pretty much confirmed the findings on the CT. He was admitted to the ICU and placed on high doses of Decadron. I met with him this morning, where he is much improved as compared to his postictal state yesterday. He went from essentially Balta paralysis on the right to now be an antigravity on the arm and right leg. His speech is much more fluent today. Overall, I am pleased with his progress over the last 12 hours. Our plan will be to transition him from the ICU to the floor. We will continue with high dose steroids and GI prophylaxis. He has also developed hyponatremia, which we will start treating with a high salt diet and 1.5% saline. He will need aggressive PT and OT. I am hopeful that if he continues to improve as quickly over the next 24 to 48 hours, we can look at discharge home within the next 1 to 2 days. Job ID: [id number]
[2019-05-11] MEDS ORDERED: Prevnar 13-Val Conj/PF 0.5 ML SYRINGE IM ONE (09:00)
[2019-05-11] MEDS: levETIRAcetam 500 MG TAB PO SCH ×2 (09:12→21:11)
[2019-05-11] MEDS: Pantoprazole 40 MG VIAL IVP SCH (09:14)
[2019-05-11] MEDS ORDERED: Sodium Chloride 256 MEQ in Sterile Water Injection 936 ML IV SCH (09:45)
--- NOTE | 2019-05-11 12:32 | PRG ---
DATE OF SERVICE: 05/11/2019 SUBJECTIVE: The patient is seen and examined at bedside. He is doing significantly better. He is able to talk. He is not drowsy anymore. Father and mother are present in the room during my visit. OBJECTIVE: VITAL SIGNS: Blood pressure is 111/59, pulse is 85, respiratory rate is 17, and O2 saturation is 98% on room air. MUSCULOSKELETAL: He has right-sided facial droop. His right upper extremity weakness improved significantly to probably 4/5. Right lower extremity strength is regained almost completely. He follows my commands. His speech is still somewhat slurred, but it is significantly improved. LUNGS: Clear. HEART: S1 and S2 normal. No S3. No S4. No any murmur. ABDOMEN: Soft and nontender. Bowel sounds are present. No organomegaly. EXTREMITIES: No clubbing, cyanosis, or edema. LABORATORY DATA: White count of 13.2, hemoglobin of 16.0, hematocrit 45.7, and platelet count is 207,000. Sodium of 129, potassium 4.3, chloride 99, CO2 of 20, BUN 11, creatinine 0.75, glucose 119, and calcium is 9.2. Microbiology, no new findings. IMPRESSION: 1. Brain tumor, status post partial resection, grade 4 glioblastoma. 2. Seizures, most likely secondary to swelling/edema around the tumor. 3. 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 PLAN: We are going to continue his Keppra 1000 mg twice a day. The patient was seen by Dr. Quezada and Dr. Curtis. Recommend to continue Decadron high dose 4 mg q.6 hours IV push home. We will try to transition him out of the ICU today and he will be on 1.5% saline IV fluids per Neurosurgery and high sodium diet. He will continue on PPI since he is on high dose of steroids. Job ID: [id number]
--- NOTE | 2019-05-11 15:08 | CON ---
DATE OF CONSULTATION: 05/11/2019 CONSULTING PHYSICIAN: Hospitalist Service. IMPRESSION: 1. Recurrent seizures. 2. Grade 4 glioma with some progression in expressive aphasia. PLAN: 1. Continue Keppra 1000 mg twice a day. 2. Continue to follow in his care as needed. 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 He was diagnosed with primary brain tumor last fall. He has undergone surgery. He has been through radiation and chemotherapy. He has developed some secondary seizures. He was on Keppra. His dose was decreased just prior to this admission. He started having some breakthrough seizures. His dose was increased to a 1000 mg twice a day just prior to admission. He started having unrelenting nausea and vomiting. They brought him into the emergency room due to the vomiting. He has been admitted to the ICU. He had some breakthrough seizures again. He was given a loading dose of Keppra and is now able to tolerate p.o. He has been noted to have some diminished speech output since this occurred. He had an MRI of the brain done since admission, which shows a large area of abnormal signal within the left parietal lobe. PAST HISTORY: Otherwise negative. ALLERGIES: AMOXICILLIN AND CLAVULANIC ACID. SOCIAL HISTORY: No tobacco or alcohol. FAMILY HISTORY: Noncontributory. REVIEW OF SYSTEMS: Ten-system review of systems is otherwise negative. PHYSICAL EXAMINATION: VITAL SIGNS: Pulse 96, respirations 24, and saturations 100%. HEENT: His pupils are equal. Conjunctivae are clear. Oropharynx is clear. NECK: Supple. EXTREMITIES: No cyanosis or edema. NEUROLOGIC: He has some subtle expressive aphasia. There are small pauses in his speech as he searches for words. There is no facial asymmetry. He seemed to have some mild weakness in the right upper extremity as well. Gait was not tested. No abnormal movements were seen. DIAGNOSTIC STUDIES: EKG shows a sinus rhythm. SUMMARY: I agree with current plan of treatment. I will be available for further help as needed. Job ID: [id number]
[2019-05-11 15:38] LABS: Sodium 138 mmol/L (136-145)
[2019-05-11 22:40] LABS: Sodium 139 mmol/L (136-145)
[2019-05-12] MEDS: Dexamethasone 4 mg/ml Vial SLOW IVP SCH ×5 (00:37→23:19)
[2019-05-12 03:49] LABS: #Lymphocytes 0.5 thou/uL (1.20-3.40); #Monocytes 0.8 thou/uL (0.11-0.59); #Neutrophils 12.6 thou/uL (1.40-6.50); %Eosinophils 0.2 % (0.0-10.0); %Lymphocytes 3.4 % (21.0-51.0); %Monocytes 5.9 % (0.0-10.0); %Neutrophils 90.5 % (42.0-75.0); Hemoglobin 15.1 g/dL (14.0-18.0); Mean Corpuscular Hemoglobin 33.5 pg (27.0-31.0); Mean Corpuscular Volume 95.8 fL (78.0-98.0); Mean Platelet Volume 8.1 fL (7.4-10.4); Platelet Count 223 thou/uL (130-400); RBC Distribution Width 13.2 % (11.5-14.5); Red Blood Cell (RBC) Count 4.49 mill/uL (4.70-6.10); White Blood Cell (WBC) Count 13.9 thou/uL (4.8-10.8)
[2019-05-12 04:07] LABS: Anion Gap 12 mmol/L (10-20); BUN (Urea Nitrogen) 15 mg/dL (8.9-20.6); Calc. Creatinine Clearance 160 mL/min (70-130); Calcium 9.3 mg/dL (7.8-10.44); Carbon Dioxide 23 mmol/L (22-29); Chloride 107 mmol/L (98-107); Estimated GFR-MDRD Greater than 90; Glucose 115 mg/dL (70-105); Potassium 4.2 mmol/L (3.5-5.1); Sodium 138 mmol/L (136-145)
[2019-05-12 07:23] LABS: Sodium 138 mmol/L (136-145)
--- NOTE | 2019-05-12 07:56 | PRG ---
DATE OF SERVICE: 05/12/2019 Mr. Ayon this morning is still in the ICU, just for bed hold, as there are no surgical beds or stroke beds. He has continued to make tremendous improvement. His speech is vastly better. He speaks in full sentences with very minor word-finding trouble and some mild speech slurring. There is minor right facial droop still, but the motor exam overall in the bilateral upper and lower extremities is more or less normalized. Sodium is 138 this morning. We will continue the high-dose steroids and await bed to move out of the ICU. We can also relax neuro checks to q.6 hours. Job ID: [id number]
--- NOTE | 2019-05-12 08:25 | PRG ---
DATE OF SERVICE: 05/11/2019 Mr. Ayon was admitted yesterday for seizures, onset of intractable nausea and vomiting. CT, MRI a large enhancing area of masslike structure in the left frontotemporal and parietal lobes with extensive vasogenic edema. Some of this may represent pseudoprogression or potential tumor progression, but difficult to say and there is a fair chance that it also could be related to radiation changes and radiation necrosis as he has completed radiation treatment. He was restarted on Decadron. His examination is vastly improved, particularly in the right upper and lower extremity and right face. He still has some form of expressive aphasia, but overall seems to be doing quite well. His level of arousal has also improved greatly. Sodium is 129. We will need to be more aggressive in treating this and get him back to normal kalemic range. We will initiate 1.5% saline solution IV fluid at 60 mL an hour. Recheck sodium q.8 until normalized. The patient is stable to move to the floor. Job ID: [id number]
--- NOTE | 2019-05-12 09:08 | PRG ---
DATE OF SERVICE: 05/12/2019 SUBJECTIVE: This morning, he is in the ICU, less agitated. OBJECTIVE: VITAL SIGNS: Temperature 97.9, pulse 65, saturations 90%, blood pressure 90/59 CHEST: No wheezing or crackles. CARDIAC: Normal S1 and S2. No gallops. ABDOMEN: No masses. LABORATORY DATA: Lab was ordered, which is unremarkable. IMPRESSION: 1. Metabolic encephalopathy, improved. 2. Right frontal glioblastoma. PLAN: 1. Disposition as per Neurosurgery, Neurology. He is on Decadron, Keppra. 2. We will follow in the ICU. Job ID: [id number]
[2019-05-12] MEDS: levETIRAcetam 500 MG TAB PO SCH ×2 (09:20→20:17)
[2019-05-12] MEDS: Pantoprazole 40 MG VIAL IVP SCH (09:20)
--- NOTE | 2019-05-12 11:41 | PRG ---
DATE OF SERVICE: 05/12/2019 Mr. Ayon remains in the ICU only because floor bed availability. He continues to improve dramatically and is nearly back to baseline after having sustained a generalized tonoclonic seizure in the setting of increased peritumoral edema following both the steroid taper and radiation treatments. We placed him back on his normal steroid dosage. His strength is nearly normal in the right side and his speech is improved dramatically. The plan is to mobilize him in the room today. If he is steady on his feet, I believe it is safe to discharge him at any time on a steroid regimen with him continue on his seizure medications. I spoke with him and his family members today and they were comfortable with that plan. He will discharge either later today or tomorrow morning. Job ID: [id number]
--- NOTE | 2019-05-12 13:26 | PRG ---
DATE OF SERVICE: 05/12/2019 SUBJECTIVE: The patient is seen and examined at the bedside. He is still in ICU A1. He is improving quickly. His speech has improved. He is able to communicate with me. He was able to eat without any problems. OBJECTIVE: VITAL SIGNS: Blood pressure is 99/59, pulse is 65, respirations 14, O2 saturation is 93% on room air. HEENT: His pupils are responding to light properly. Sclerae are nonicteric. Oral mucosa is moist. NECK: Supple. LUNGS: Clear. HEART: S1 and S2 normal. ABDOMEN: Soft, nontender. EXTREMITIES: No clubbing, cyanosis, or edema. NEUROLOGIC: He is able to communicate with me. His speech has significantly improved, although he is still somewhat slurred and his right-sided weakness has improved too. He regained his function in the right lower extremity almost completely and there is minimal residual dysfunction of the right upper extremity. ASSESSMENT AND PLAN: The patient was seen by Dr. Quezada, who recommends to transition him out of the ICU and most likely he will be discharged home tomorrow on his regular steroid regimen and antiseizure medications. Job ID: [id number]
[2019-05-12 15:41] LABS: Sodium 138 mmol/L (136-145)
--- NOTE | 2019-05-12 21:55 | CON ---
DATE OF CONSULTATION: HISTORY OF PRESENT ILLNESS: Mr. Salvador is a 23-year-old man known to us from prior left hemicraniectomy with GBM resection back in February of 2019. He has since had clinic followups for his typical postop and he has underwent radiation and chemotherapy. He finished his radiation treatments and continued to do daily chemotherapeutic agent in pill form. Recently, he started to have some recurrent seizures, mostly occurring as right-sided facial twitching or numbness. Ultimately, started to have more diffuse seizure activity and then today started to have profuse intractable nausea and vomiting, brought to the emergency department for this purpose. While in CT scan, he grand mal seizure and Ativan was administered for this purpose. Ultimately, we were consulted for a new CT scan showing large masslike structure with extensive cerebral edema at the left frontal and temporal lobes with associated midline shift left to right. There was some mild effacement of the right lateral ventricle moderate effacement of the lateral ventricle, it is hard to say if this is new tumor activity or this is more related to radiation necrosis. In either case, he is being admitted to the ICU for more close monitoring. When I arrived to the hospital to see him at bedside, he is already in the ICU. He awakens when spoke to and follows left upper and left lower extremities. He has some obvious motor weakness to the right side of his face, right arm, right leg, although he was at least able to wiggle toes right foot. More as the right arm, he has limited. He is still somewhat lethargic. I am not sure if this is medication effect from the Ativan or it is recovering from postictal state. There is no obvious edema over the skin overlying his Pupils are equal, round, and reactive to light. Extraocular muscles intact. Gaze is conjugate. PLAN: At this time from Neurosurgery perspective his administration of IV Decadron, which We will need to have scheduled 4 mg Decadron GI prophylactic agent. We will order Protonix IV daily. He will also need q.1 hour neuro checks with contrast. We will follow up with Updated plan and prognosis after MRI scan. Job ID: [id number]
[2019-05-12 23:28] LABS: Sodium 137 mmol/L (136-145)
[2019-05-13] MEDS: Dexamethasone 4 mg/ml Vial SLOW IVP SCH ×2 (05:40→10:50)
[2019-05-13 07:38] LABS: Sodium 140 mmol/L (136-145)
--- NOTE | 2019-05-13 07:47 | PRG ---
DATE OF SERVICE: 05/13/2019 Mr. Ayon this morning is doing well in the ICU. Again, he remained in the ICU because we have no additional beds to afford him. Our hope is to try to discharge him yesterday home, but after walking in his room, in the halls and actually even outside, he was deem to have a little bit too much of that of a steady gait to safely discharge care and for this reason, he was held overnight and this morning, he again looks fantastic. He has tremendously improved since his presentation. From Neurosurgery standpoint, he is safe to discharge at any time. I have said that a long duration of Decadron taper to his pharmacy and I have also said that 1000 mg of Keppra b.i.d. We will arrange for clinic followup in the coming weeks. Again, from our standpoint, the patient is safe to be discharged as soon as the Primary Team feels comfortable doing so and the patient shows improved gait likely this morning. Job ID: [id number]
[2019-05-13] MEDS: levETIRAcetam 500 MG TAB PO SCH (08:15)
--- NOTE | 2019-05-13 08:58 | PRG ---
DATE OF SERVICE: 05/13/2019 SUBJECTIVE: This morning, he remains in the ICU without any complaints. No shortness of breath. No pain. No seizure activity. OBJECTIVE: VITAL SIGNS: Afebrile, saturations are 97% on room air, pulse 57, blood pressure 107/59, respirations 16. CHEST: No wheezing or crackles. CARDIAC: Normal S1 and S2. No gallops. ABDOMEN: No masses. ASSESSMENT: Frontal glioblastoma, on chemoradiation. No seizure activity at this stage. PLAN: Pulmonary/Critical Care will follow while in the ICU. Disposition as per Surgery. Follow up with Oncology. Job ID: [id number]
[2019-05-13 11:25] VITALS: TEMP 98.3
[2019-05-13 11:32] VITALS: BP 133/73
--- NOTE | 2019-05-14 05:44 | DIS ---
DATE OF ADMISSION: 05/10/2019 DATE OF DISCHARGE: 05/13/2019 REASON FOR HOSPITALIZATION: Breakthrough seizure. SIGNIFICANT FINDINGS: The patient with glioblastoma multiforme status post resection with increasing areas of nodular enhancement at the prior operative site with vasogenic edema and mass effect. PROCEDURES PERFORMED AND TREATMENTS RENDERED: The patient was admitted to the intensive care unit for close management. He was seen and evaluated by Neurosurgery, Neurology, and Pulmonary/Critical Care physicians-please see full consultation notes, progress notes, and all radiographic imaging for full details. The patient was started on IV steroids, which had a profound effect on improving his clinical symptoms. With the addition of IV steroids, the patient was controlled with his seizures. The patient was placed on Keppra per Neurology and the dose was adjusted by specialist as appropriate. The patient was seen and evaluated by Neurosurgery, who recommended that there was no recommended surgical intervention. Due to the patient having such a good response to steroids, he was recommended safe for discharge by all specialists with close followup in the outpatient setting. The patient recommended to complete a full steroid taper as directed by Neurology and Neurosurgery. The patient recommended to continue antiepileptic drug as recommended by specialist. CONDITION ON DISCHARGE: Stable. SPECIFIC INSTRUCTIONS FOR THE PATIENT/FAMILY: 1. The patient is recommended to take all medications as directed. 2. The patient is recommended to follow up with Neurology in the next 1 to 2 weeks. 3. The patient is recommended to follow up with Neurosurgery in the next 1 to 2 weeks. 4. The patient is recommended to follow up with Oncology in the next 1 to 2 weeks. 5. The patient is recommended to follow up with Radiation Oncology in the next 1 to 2 weeks. 6. The patient is recommended to return to acute care hospital immediately if signs or symptoms return, worsen, or any other new symptoms occur. 7. The patient is recommended to avoid seizure triggers including but not limited to dehydration, nausea, vomiting, alcohol, illicit drugs, insomnia, and sleep deprivation, and he is explicitly recommended to take his antiepileptic drug as directed by Neurology and Neurosurgery specialists. If he is unable to comply with any of these steps for whatever reason, he is to return to acute care hospital immediately for re-evaluation. DISCHARGE MEDICATIONS: Please see full discharge medication list for details. 1. Keppra 1000 mg one tablet p.o. b.i.d. 2. Decadron 4 mg with tapering dose per Neurosurgery. 3. Zofran 8 mg one tablet p.o. t.i.d. p.r.n. nausea and vomiting. 4. Protonix 40 mg one tablet p.o. daily. 5. Zyrtec 10 mg one tablet p.o. daily. 6. Temozolomide two capsules p.o. daily. 7. Tramadol 50 mg p.o. q.6 hours p.r.n. pain. TIME SPENT: Greater than 35 minutes spent coordinating care and discharge process for this patient. Job ID: [id number]
== END 2019-05-13 10:55 | disposition home health service (06) | DRG 100 ==
LOC: ERS 10:13 → CCU 12:33
PROVIDERS: ADMIT Internal Medicine; ATTEND Internal Medicine
DX: G40.409 Other generalized epilepsy and epileptic syndromes, not intractable, without status epilepticus (principal); G93.6 Cerebral edema; G93.41 Metabolic encephalopathy; C71.9 Malignant neoplasm of brain, unspecified; R47.01 Aphasia; E22.2 Syndrome of inappropriate secretion of antidiuretic hormone; Z88.0 Allergy status to penicillin; Z88.8 Allergy status to other drugs, medicaments and biological substances; E87.8 Other disorders of electrolyte and fluid balance, not elsewhere classified; K21.9 Gastro-esophageal reflux disease without esophagitis
CPT/HCPCS: 36415; 70450; 70553; 71045; 80048; 80053; 83605; 84295; 85025; 87040; 87804; A4217; A9579; C9113; J1100; J1953; J2060; J2405

== ENCOUNTER 2019-07-18 13:24 | Outpatient (CLI) | payer BC ==
--- NOTE | 2019-07-18 15:19 | MRI ---
MRI BRAIN WITH AND WITHOUT CONTRAST: DATE: 07/18/2019 HISTORY: 23-year-old male follow-up glioblastoma status post resection. Restaging. COMPARISON: 05/10/2019 TECHNIQUE: Multiplanar, multisequence MRI of the brain performed pre- and post-IV injection of gadolinium based contrast agent. FINDINGS: Deep to the left frontotemporal parietal craniotomy changes, the left lateral frontal and parietal in tra-axial mass, which previously measured approximately 5.9 x 5.8 x 5.2 cm, currently measures approximately 5.3 x 4.9 x 4.8 cm. Again noted is the very heterogeneous No intensity on T2 weighted images, including numerous fluid-filled cystic components with rim enhanc ement, as well as more heterogeneously enhancing solid components. The degree of surrounding vasogenic edema is still significant, but has improved. The distortion and extrinsic compression upon the lateral ventricles has improved. The previous degree of left to right midline shift of the septum pellucidum was 0.9 cm. It is currently approximately 0.4 cm. Again noted is the methemoglobin within portions of the tumor, unchanged. No new hemorrhage. No new areas of restricted diffusion. IMPRESSION: Interval decrease in size, vasogenic edema, and mass effect, involving the left frontoparietal intra- axial primary malignant brain neoplastic tumor: Improvement in glioblastoma.
== END 2019-07-18 13:25 | disposition home or self-care (01) ==
LOC: MRI 13:24
PROVIDERS: ATTEND Radiology Radiation Oncology
DX: C71.9 Malignant neoplasm of brain, unspecified (principal); R60.0 Localized edema; Z98.890 Other specified postprocedural states
CPT/HCPCS: 70553

== ENCOUNTER 2019-09-27 09:40 | Outpatient (CLI) | payer BC ==
--- NOTE | 2019-09-27 11:19 | MRI ---
MRI BRAIN WITH AND WITHOUT CONTRAST: DATE: 09/27/2019 HISTORY: 23-year-old male follow-up malignant neoplasm of brain: Glioblastoma COMPARISON: 07/18/2019 TECHNIQUE: Multiplanar, multisequence MRI of the brain performed pre- and post-IV injection of gadolinium based contrast agent. FINDINGS: Deep to the left frontotemporoparietal craniotomy changes, again noted is the large complex, mixed so lid and cystic intra-axial tumor mass with heterogeneous enhancement, measuring approximately 5.3 x 4.9 x 4.8 cm, centered in the lateral aspect of left frontal lobe, has not significantly changed in s ize. The degree of surrounding prominent vasogenic edema at the left frontal lobe, encroaching upon the parietal lobe, currently appears similar to that of the previous MRI. The mild distortion and ext rinsic compression upon the lateral ventricles is unchanged. The left to right midline shift of the septum pellucidum of approximately 0.3 to 0.4 cm, is unchanged. The previously demonstrated regions o f hemorrhage within the tumor are unchanged. No new hemorrhage. No new areas of restricted diffusion. There are no new enhancing lesions elsewhere in the intracranial cavity. There has been no major interval change overall. IMPRESSION: No interval change in the large left lateral frontal intra-axial mixed solid and cystic malignant layla lizbeth neoplastic tumor mass (glioblastoma), with no interval change in the degree of vasogenic edema and the mild to moderate mass effect.
[2019-09-27] MEDS ORDERED: Magnevist 469MG/ML 20 ML VIAL ONE (12:17)
== END 2019-09-27 09:41 | disposition home or self-care (01) ==
LOC: BICMRI 09:40
PROVIDERS: ATTEND Radiology Radiation Oncology
DX: C71.9 Malignant neoplasm of brain, unspecified (principal)
CPT/HCPCS: 70553; A9579

== ENCOUNTER 2019-11-26 14:31 | Outpatient (CLI) | payer BC ==
--- NOTE | 2019-11-26 15:31 | MRI ---
Exam: Brain MRI with and without contrast HISTORY: Glioblastoma multiforme. Status post surgery and chemotherapy. XRT. Restaging. COMPARISON: 09/27/2019, 07/18/2019, 02/25/2019. FINDINGS: Gradient echo sequence: Expected postoperative and posttreatment hemorrhage in the resection cavity. Calvarium: Appropriate T1 marrow signal intensity Midline brain parenchyma: Unremarkable Cerebrum:Redemonstration of extensive T2 and FLAIR hyperintensity centered in the left temporal lobe with extension of vasogenic edema into the left frontal and parietal lobe. The previously identified resection cavity demonstrates a mixed solid and cystic focus. There is some intrinsic T1 h yperintensity which may represent cellular material versus hemorrhage. Postcontrast images demonstrate predominantly peripheral enhancement with a small component of enhancement in terms of th e internal architecture. The medial component has more nodular enhancement and likely represents residual tumor. The overall area of enhancement measures 4.4 cm mediolateral x 4.0 cm anterior clerical administrator ior x 4.6 cm craniocaudal. There are smaller areas of enhancement that are slightly remote from the main portion of this lesion. The small areas of enhancement are demonstrated on the previous examinat ion and likely represent small satellite lesions along the left frontal lobe. There is no evidence of abnormal enhancement of the right cerebrum or posterior fossa. Ventricles: No hydrocephalus. Midline shift: There is 0.4 cm of left to right subfalcine herniation. Sinuses and mastoid air cells: Small mucous retention cyst in the right maxillary sinus Diffusion: Central arterial flow is maintained. Absent restricted diffusion. Postcontrast images:As above. IMPRESSION: Redemonstration of a peripherally enhancing focus centered in the left temporal lobe. There is residu al enhancement which may in part represent posttreatment change/scar tissue. However, the medial component does have somewhat more nodular enhancement favoring residual tumor. Redemonstration of a m ixed solid and cystic component to the overall appearance of the mass. Redemonstration of at least two small satellite lesions which appear to be just anterior to the postoperative site. Transcribed Date/Time: 11/26/2019 3:52 PM
== END 2019-11-26 14:32 | disposition home or self-care (01) ==
LOC: TBSIIMAG 14:31
PROVIDERS: ATTEND Radiology Radiation Oncology
DX: C71.9 Malignant neoplasm of brain, unspecified (principal)
CPT/HCPCS: 70553